=== PATIENT | female | born 1950 | race Caucasian/White ===

== ENCOUNTER 2019-06-23 10:28 | Outpatient (CLI) | payer MEDICARE ==
--- NOTE | 2019-06-23 10:54 | RAD ---
PA AND LATERAL VIEWS OF THE CHEST: HISTORY: Chest wall pain. FINDINGS: Comparison is made with the exam of 04/27/2003. The heart size is borderline. There is a large hiatal hernia. The aorta is tortuous. No lobar cons olidation, pneumothoraces, or pleural effusions are seen. IMPRESSION: 1. No acute process. 2. Large hiatal hernia. POS: OFF
== END 2019-06-23 10:29 | disposition home or self-care (01) ==
LOC: RAD-FRANK 10:28
PROVIDERS: ATTEND Nurse Practitioner Family
DX: R07.89 Other chest pain (principal); K44.9 Diaphragmatic hernia without obstruction or gangrene
CPT/HCPCS: 71046

== ENCOUNTER 2021-01-13 10:19 | Outpatient (CLI) | payer MEDICARE | END 2021-01-13 10:20 | disposition home or self-care (01) | LOC: RAD-FRANK 10:19 | PROVIDERS: ATTEND Nurse Practitioner Family | DX: M79.672 Pain in left foot (principal); S92.415D Nondisplaced fracture of proximal phalanx of left great toe, subsequent encounter for fracture with routine healing ==

== ENCOUNTER 2022-02-20 13:37 | Outpatient (CLI) | payer MEDICARE, OTHER | END 2022-02-20 13:38 | disposition home or self-care (01) | LOC: BICMAMMO 13:37 | PROVIDERS: ATTEND Internal Medicine | DX: Z12.31 Encounter for screening mammogram for malignant neoplasm of breast (principal); Z85.3 Personal history of malignant neoplasm of breast; Z98.890 Other specified postprocedural states | CPT/HCPCS: 77063; 77067 ==

== ENCOUNTER 2022-06-14 14:56 | Outpatient (CLI) | payer MEDICARE, OTHER | END 2022-06-14 14:57 | disposition home or self-care (01) | LOC: RAD-FRANK 14:56 | PROVIDERS: ATTEND Nurse Practitioner Family | DX: R05.9 Cough, unspecified (principal) | CPT/HCPCS: 71046 ==

== ENCOUNTER 2022-09-05 17:38 | Emergency (ER) | payer OTHER, MEDICARE ==
[~2022-09-05 17:38] MED LIST: Iopamidol-370 76% 500 ML MDV (1 ML CHARGE) ONE
[2022-09-05 18:12] LABS: #Monocytes 0.3 thou/uL (0.11-0.59); #Neutrophils 4.8 thou/uL (1.40-6.50); %Basophils 0.5 % (0.0-1.0); %Eosinophils 0.3 % (0.0-10.0); %Lymphocytes 17.6 % (21.0-51.0); %Monocytes 4.9 % (0.0-10.0); %Neutrophils 76.4 % (42.0-75.0); Hemoglobin 13.3 g/dL (12.0-16.0); Mean Corpuscular HGB CONC 34.1 g/dL (32.0-36.0); Mean Corpuscular Hemoglobin 31.4 pg (27.0-31.0); Mean Corpuscular Volume 92.2 fl (78.0-98.0); Mean Platelet Volume 10.1 fL (7.4-10.4); Platelet Count 224 10x3/uL (130-400); RBC Distribution Width 13.2 % (11.5-14.5); Red Blood Cell (RBC) Count 4.23 mill/uL (4.20-5.40); White Blood Cell (WBC) Count 6.3 10x3/uL (4.8-10.8)
[2022-09-05 18:31] LABS: ALT (SGPT) 12 U/L (8-55); AST (SGOT) 15 U/L (5-34); Acetaminophen Less than 10.0 mcg/mL (10.0-30.0); Albumin 3.9 g/dL (3.4-4.8); Alcohol 259 mg/dL (Less than 10); Alkaline Phosphatase 62 U/L (40-110); Anion Gap 13 mmol/L (10-20); BUN (Urea Nitrogen) 5 mg/dL (9.8-20.1); Bilirubin, Total 0.7 mg/dL (0.2-1.2); CK (CPK) 33 U/L (29-168); Calc. Creatinine Clearance 0 mL/min (70-130); Calcium 8.7 mg/dL (7.8-10.44); Carbon Dioxide 22 mmol/L (23-31); Chloride 102 mmol/L (98-107); Estimated GFR 92; Globulin 2.5 g/dL (2.4-3.5); Glucose 135 mg/dL (83-110); Potassium 3.3 mmol/L (3.5-5.1); Protein, Total 6.4 g/dL (5.8-8.1); Salicylate Less than 8.0 mg/dL (15.0-30.0); Sodium 134 mmol/L (136-145)
[2022-09-05 18:54] LABS: Bilirubin Negative (Negative); Blood, Urine Negative (Negative); Clarity Clear (Clear); Glucose, Urine (Dipstick) Normal (Negative); Ketone, Urine Negative (Negative); Leukocyte Negative Leu/uL (Negative); Nitrite Negative (Negative); Protein, Urine (Dipstick) Negative (Neg-Trace); Specific Gravity, Urine 1.034 (1.002-1.036); Urobilinogen Normal mg/dL (Less than 2)
[2022-09-05 19:01] LABS: Amphetamine Not Detected (NotDetected); Barbiturates Screen Not Detected (NotDetected); Benzodiazepine Screen Not Detected (NotDetected); Cocaine Metabolite Screen Not Detected (NotDetected); Methadone Not Detected (NotDetected); Methamphetamine Not Detected (NotDetected); Opiate Screen Not Detected (NotDetected); Oxycodone Screen Not Detected (NotDetected); Phencyclidine (PCP) Not Detected (NotDetected); THC/Cannabinoid Screen Not Detected (NotDetected); Tricyclic Screen Not Detected (NotDetected)
== END 2022-09-05 20:10 | disposition home or self-care (01) ==
LOC: ERS 17:38
DX: S22.080A Wedge compression fracture of T11-T12 vertebra, initial encounter for closed fracture (principal); K44.9 Diaphragmatic hernia without obstruction or gangrene; I10 Essential (primary) hypertension; E78.00 Pure hypercholesterolemia, unspecified; E11.9 Type 2 diabetes mellitus without complications; V89.2XXA Person injured in unspecified motor-vehicle accident, traffic, initial encounter
CPT/HCPCS: 51701; 70450; 71045; 71260; 72125; 74177; 80053; 80306; 80307; 81003; 82550; 84484; 85025; 93005; Q9967

== ENCOUNTER 2023-05-29 13:27 | Outpatient (CLI) | payer MEDICARE | END 2023-05-29 13:28 | disposition home or self-care (01) | LOC: BICMAMMO 13:27 | PROVIDERS: ATTEND Internal Medicine | DX: Z12.31 Encounter for screening mammogram for malignant neoplasm of breast (principal); Z85.3 Personal history of malignant neoplasm of breast; Z98.890 Other specified postprocedural states | CPT/HCPCS: 77063; 77067 ==

== ENCOUNTER 2024-10-16 11:12 | Outpatient (CLI) | payer MEDICARE, OTHER ==
[2024-10-16 12:21] LABS: #Basophils 0.04 10x3/uL (0.0-0.2); #Eosinophils Less than 0.03 10x3/uL (0.0-0.7); %Basophils 0.5 % (0.0-1.0); %Eosinophils 0.1 % (0.0-10.0); %Lymphocytes 12.6 % (21.0-51.0); %Monocytes 4.6 % (0.0-10.0); %Neutrophils 81.9 % (42.0-75.0); Hemoglobin 13.5 g/dL (12.0-16.0); Mean Corpuscular HGB CONC 33.8 g/dL (32.0-36.0); Mean Corpuscular Hemoglobin 28.9 pg (27.0-31.0); Mean Corpuscular Volume 85.7 fL (78.0-98.0); Mean Platelet Volume 9.8 fL (7.4-10.4); Platelet Count 346 10x3/uL (130-400); Red Blood Cell (RBC) Count 4.67 mill/uL (4.20-5.40); White Blood Cell (WBC) Count 8.67 10x3/uL (4.8-10.8)
[2024-10-16 12:32] LABS: Hemoglobin A1c 5.9 % (4.0-6.0)
[2024-10-16 12:50] LABS: ALT (SGPT) 23 U/L (Less than 34); AST (SGOT) 34 U/L (11-34); Albumin 4.3 g/dL (3.1-4.5); Alkaline Phosphatase 103 U/L (40-110); Anion Gap 15 mmol/L (10-20); BUN (Urea Nitrogen) 10 mg/dL (9.8-20.1); Bilirubin, Total 1.4 mg/dL (0.3-1.2); Calc. Creatinine Clearance 0 mL/min (70-130); Calcium 9.4 mg/dL (7.8-10.44); Carbon Dioxide 22 mmol/L (23-31); Chloride 88 mmol/L (98-107); Estimated GFR 69; Globulin 3.5 g/dL (2.4-3.5); Glucose 161 mg/dL (83-110); Potassium 3.5 mmol/L (3.5-5.1); Protein, Total 7.8 g/dL (5.8-8.1); Sodium 121 mmol/L (136-145)
== END 2024-10-16 11:13 | disposition home or self-care (01) ==
LOC: LABBT 11:12
PROVIDERS: ATTEND Surgery
DX: Z01.818 Encounter for other preprocedural examination (principal); Z87.19 Personal history of other diseases of the digestive system; Z86.0101 Personal history of adenomatous and serrated colon polyps; Z93.2 Ileostomy status
CPT/HCPCS: 80053; 83036; 85025; 93005; 93010

== ENCOUNTER 2024-12-05 14:07 | Inpatient (IN) | payer MEDICARE, OTHER ==
[2024-12-05 15:47] LABS: Cocaine Metabolite Screen Negative (Negative); THC/Cannabinoid Screen Negative (Negative); Tricyclic Screen Negative (Negative)
[2024-12-05 16:15] LABS: #Basophils 0.06 10x3/uL (0.0-0.2); #Eosinophils Less than 0.03 10x3/uL (0.0-0.7); #Monocytes 0.41 10x3/uL (0.11-0.59); #Neutrophils 10.96 10x3/uL (1.40-6.50); %Basophils 0.5 % (0.0-1.0); %Eosinophils 0.0 % (0.0-10.0); %Lymphocytes 7.0 % (21.0-51.0); %Monocytes 3.3 % (0.0-10.0); %Neutrophils 88.9 % (42.0-75.0); Hematocrit 37.2 % (36.0-47.0); Hemoglobin 12.4 g/dL (12.0-16.0); Mean Corpuscular Hemoglobin 28.4 pg (27.0-31.0); Mean Corpuscular Volume 85.1 fL (78.0-98.0); Platelet Count 291 10x3/uL (130-400); Red Blood Cell (RBC) Count 4.37 mill/uL (4.20-5.40); White Blood Cell (WBC) Count 12.33 10x3/uL (4.8-10.8)
[2024-12-05 16:32] LABS: INR-International Normal Ratio 1.0; Prothrombin Time 13.7 sec (12.0-14.7)
[2024-12-05 16:33] LABS: PTT 23.9 sec (22.9-36.1)
[2024-12-05 16:34] LABS: Magnesium 1.8 mg/dL (1.6-2.6)
[2024-12-05 16:35] LABS: ALT (SGPT) 10 U/L (Less than 34); AST (SGOT) 17 U/L (11-34); Acetaminophen Less than 10 mcg/mL (Less than 10); Albumin 4.2 g/dL (3.1-4.5); Alkaline Phosphatase 70 U/L (40-110); Anion Gap 15 mmol/L (10-20); BUN (Urea Nitrogen) 9 mg/dL (9.8-20.1); Bilirubin, Total 1.2 mg/dL (0.3-1.2); Calc. Creatinine Clearance 0 mL/min (70-130); Calcium 8.8 mg/dL (7.8-10.44); Carbon Dioxide 23 mmol/L (23-31); Chloride 99 mmol/L (98-107); Globulin 2.9 g/dL (2.4-3.5); Glucose 142 mg/dL (83-110); Potassium 4.2 mmol/L (3.5-5.1); Salicylate Less than 8.0 mg/dL (Less than 8.0); Sodium 133 mmol/L (136-145)
[2024-12-05 17:27] LABS: Actual Bicarbonate (HCO3v) 22.7 mEq/L (22-28); Analyzer IN Cardio ER; Base Excess -0.9 mEq/L (-2.0 to +3.0); Calcium, Ionized (venous) 1.11 mmol/L (1.16-1.32); Chloride (VBG) 98 mmol/L (98-106); Hematocrit-VBG 37 % (36.0-47.0); Hemoglobin (Hb) 12.7 g/dL (11.7-16.1); Potassium (VBG) 3.86 mmol/L (3.70-5.30); Sodium 135 mmol/L (133-146)
[2024-12-05] MEDS ORDERED: Acetaminophen 325 MG TAB PO PRN (18:59)
[2024-12-05] MEDS ORDERED: Ondansetron PF 4 MG/2 ML Vial IVP PRN (18:59)
[2024-12-05] MEDS ORDERED: Dextrose 50% Abboject 50 ML SYRINGE SLOW IVP PRN (18:59)
[2024-12-05] MEDS ORDERED: Glucagon 1 MG/ML KIT IM PRN (18:59)
[2024-12-05] MEDS: Multivitamins, Adult 10 ML, Thiamine HCl 100 MG, Folic Acid 1 MG in Dextrose 5 %-0.45 %... IV ONE (21:57)
[2024-12-05] MEDS ORDERED: Nitroglycerin 0.4 MG TAB (25 Tab Bottle) SL PRN (23:07)
[2024-12-05] MEDS: Heparin 10,000 UNITS/ 10 ML VIAL SLOW IVP SCH (23:48)
[2024-12-06] MEDS: Aspirin 325 MG TAB PO SCH ×2 (03:08→06:21)
[2024-12-06 03:13] LABS: Glucose, Urine (Dipstick) Normal (Negative); Leukocyte Negative Leu/uL (Negative); Protein, Urine (Dipstick) Negative (Neg-Trace); Specific Gravity, Urine 1.005 (1.002-1.036)
[2024-12-06 06:20] LABS: #Basophils 0.07 10x3/uL (0.0-0.2); #Eosinophils 0.10 10x3/uL (0.0-0.7); #Monocytes 0.49 10x3/uL (0.11-0.59); #Neutrophils 6.94 10x3/uL (1.40-6.50); %Basophils 0.8 % (0.0-1.0); %Eosinophils 1.1 % (0.0-10.0); %Lymphocytes 14.5 % (21.0-51.0); %Monocytes 5.5 % (0.0-10.0); %Neutrophils 77.9 % (42.0-75.0); Hematocrit 36.1 % (36.0-47.0); Hemoglobin 11.8 g/dL (12.0-16.0); Mean Corpuscular Hemoglobin 28.4 pg (27.0-31.0); Mean Corpuscular Volume 87.0 fL (78.0-98.0); Platelet Count 247 10x3/uL (130-400); Red Blood Cell (RBC) Count 4.15 mill/uL (4.20-5.40); White Blood Cell (WBC) Count 8.91 10x3/uL (4.8-10.8)
[2024-12-06 06:50] LABS: Anion Gap 12 mmol/L (10-20); BUN (Urea Nitrogen) 7 mg/dL (9.8-20.1); Calc. Creatinine Clearance 77 mL/min (70-130); Calcium 7.9 mg/dL (7.8-10.44); Carbon Dioxide 21 mmol/L (23-31); Cardiac Risk 3.1 (Less than 4.5); Chloride 105 mmol/L (98-107); Cholesterol 192 mg/dl (< 200 Desired); Glucose 128 mg/dL (83-110); HDL Cholesterol 62 mg/dL (>60 Neg Risk); LDL Cholesterol, Calculated 103 mg/dL; Potassium 3.2 mmol/L (3.5-5.1); Sodium 135 mmol/L (136-145); Triglycerides 137 mg/dL (Less than 150)
[2024-12-06] MEDS ORDERED: Enoxaparin 40 MG (0.4 mL) SYRINGE SC SCH (09:00)
[2024-12-06] MEDS: Lisinopril 10 MG TAB PO SCH (10:00)
[2024-12-07 10:05] LABS: #Basophils 0.06 10x3/uL (0.0-0.2); #Eosinophils 0.06 10x3/uL (0.0-0.7); #Monocytes 0.48 10x3/uL (0.11-0.59); #Neutrophils 6.42 10x3/uL (1.40-6.50); %Basophils 0.7 % (0.0-1.0); %Eosinophils 0.7 % (0.0-10.0); %Lymphocytes 14.9 % (21.0-51.0); %Monocytes 5.8 % (0.0-10.0); %Neutrophils 77.5 % (42.0-75.0); Hematocrit 41.2 % (36.0-47.0); Hemoglobin 13.6 g/dL (12.0-16.0); Mean Corpuscular Hemoglobin 28.8 pg (27.0-31.0); Mean Corpuscular Volume 87.3 fL (78.0-98.0); Platelet Count 239 10x3/uL (130-400); Red Blood Cell (RBC) Count 4.72 mill/uL (4.20-5.40); White Blood Cell (WBC) Count 8.28 10x3/uL (4.8-10.8)
[2024-12-07 10:28] LABS: Anion Gap 16 mmol/L (10-20); BUN (Urea Nitrogen) 7 mg/dL (9.8-20.1); Calc. Creatinine Clearance 72 mL/min (70-130); Calcium 8.7 mg/dL (7.8-10.44); Carbon Dioxide 21 mmol/L (23-31); Chloride 106 mmol/L (98-107); Glucose 180 mg/dL (83-110); Potassium 3.4 mmol/L (3.5-5.1); Sodium 140 mmol/L (136-145)
[2024-12-07] MEDS: Aspirin 81 mg Enteric Coated Tablet PO SCH (11:28)
[2024-12-07 11:42] VITALS: BP 153/81; TEMP 97.8
[2024-12-08] MEDS ORDERED: Aspirin 81 mg Enteric Coated Tablet PO SCH (09:00)
== END 2024-12-07 16:30 | disposition home or self-care (01) | DRG 71 ==
LOC: ERS 14:07 → 2SE 17:56 → OBSVTOIN 17:57
PROVIDERS: ADMIT Internal Medicine; ATTEND Internal Medicine
DX: G93.41 Metabolic encephalopathy (principal); Q04.8 Other specified congenital malformations of brain; R29.810 Facial weakness; E11.9 Type 2 diabetes mellitus without complications; E03.9 Hypothyroidism, unspecified; I10 Essential (primary) hypertension; H53.8 Other visual disturbances; L56.8 Other specified acute skin changes due to ultraviolet radiation; Z79.890 Hormone replacement therapy; Z79.899 Other long term (current) drug therapy; Z79.84 Long term (current) use of oral hypoglycemic drugs
CPT/HCPCS: 36415; 36416; 70450; 70496; 70498; 70553; 71260; 76376; 80048; 80053; 80061; 80306; 80307; 81003; 82607; 82805; 83605; 83735; 83880; 84425; 84443; 84484; 84590; 85025; 85610; 85730; 93005; 93306; 96361; 96365; J1644; J3411; J7030; J7042; Q9967

== ENCOUNTER 2025-02-06 18:01 | Inpatient (IN) | payer MEDICARE, OTHER ==
[~2025-02-06 18:01] MED LIST changes: +Iopamidol 370 76% 100 ML VIAL ONE; -Iopamidol-370 76% 500 ML MDV (1 ML CHARGE) ONE
[2025-02-06] MEDS ORDERED: Norepinephrine 8 MG/0.9% NS 250 ML ONE (18:05)
[2025-02-06] MEDS ORDERED: Heparin 5,000 UNITS/ML VIAL ONE (18:30)
[2025-02-06 18:45] LABS: Base Excess (BEa) -12.5 mEq/L (-2.0 to +3.0); CO2 Tension 32.5 mmHg (35.0-45.0); Calcium, Ionized (arterial) 1.08 mmol/L (1.12-1.30); Hematocrit-ABG 41 % (36.0-47.0); Hemoglobin (Hb) 13.8 g/dL (12.0-16.0); O2 Tension (PaO2), arterial 151.1 mmHg (> 70.0); Potassium - ABG Lab 4.47 mmol/L (3.70-5.30); pH, Arterial 7.242 (7.35-7.45)
[2025-02-06] MEDS ORDERED: Lidocaine 1% (PF) 30 ML VIAL ONE (18:46)
[2025-02-06] MEDS ORDERED: PHENYLEPHRINE-NS 100 MCG/ML 10 ML SYRINGE ONE (18:46)
[2025-02-06] MEDS ORDERED: Adenosine 6 mg (2 mL) VIAL ONE (18:46)
[2025-02-06] MEDS ORDERED: Heparin 10,000 UNITS/ 10 ML VIAL ONE (18:46)
[2025-02-06] MEDS ORDERED: Nitroglycerin 50 MG/250 ML BOT 0 ML ONE (18:46)
[2025-02-06 18:57] LABS: #Basophils 0.03 10x3/uL (0.0-0.2); #Eosinophils Less than 0.03 10x3/uL (0.0-0.7); #Monocytes 0.77 10x3/uL (0.11-0.59); #Neutrophils 15.59 10x3/uL (1.40-6.50); %Basophils 0.2 % (0.0-1.0); %Eosinophils 0.0 % (0.0-10.0); %Lymphocytes 4.3 % (21.0-51.0); %Monocytes 4.5 % (0.0-10.0); %Neutrophils 90.4 % (42.0-75.0); Hematocrit 37.1 % (36.0-47.0); Hemoglobin 12.1 g/dL (12.0-16.0); Mean Corpuscular Hemoglobin 29.9 pg (27.0-31.0); Mean Corpuscular Volume 91.6 fL (78.0-98.0); Platelet Count 192 10x3/uL (130-400); Red Blood Cell (RBC) Count 4.05 mill/uL (4.20-5.40); White Blood Cell (WBC) Count 17.23 10x3/uL (4.8-10.8)
[2025-02-06 19:10] LABS: Bacteria/HPF None Seen HPF (None Seen); CAUTI Indications for Culture Urological Procedure; Glucose, Urine (Dipstick) 150 mg/dL (Negative); Leukocyte Negative Leu/uL (Negative); Protein, Urine (Dipstick) 20 mg/dL (Neg-Trace); RBC/HPF 0-3 HPF (0-3); WBC/HPF 0-3 HPF (0-3)
[2025-02-06 19:12] LABS: Cocaine Metabolite Screen Negative (Negative); THC/Cannabinoid Screen Negative (Negative); Tricyclic Screen Negative (Negative)
[2025-02-06 19:14] LABS: INR-International Normal Ratio 1.4; PTT 28.2 sec (22.9-36.1); Prothrombin Time 16.9 sec (12.0-14.7); Specific Gravity, Urine Greater than 1.036 (1.002-1.036)
[2025-02-06 19:15] LABS: Urine Culture Reflex Yes Yes
[2025-02-06 19:24] LABS: Lipase 16 U/L (8-78); Magnesium 1.6 mg/dL (1.6-2.6)
[2025-02-06 19:25] LABS: Acetaminophen Less than 10 mcg/mL (Less than 10); Salicylate Less than 8.0 mg/dL (Less than 8.0)
[2025-02-06 19:26] LABS: ALT (SGPT) 228 U/L (Less than 34); AST (SGOT) 549 U/L (11-34); Albumin 3.2 g/dL (3.1-4.5); Alkaline Phosphatase 132 U/L (40-110); Anion Gap 20 mmol/L (10-20); BUN (Urea Nitrogen) 6 mg/dL (9.8-20.1); Bilirubin, Total 1.3 mg/dL (0.3-1.2); CK (CPK) 145 U/L (29-168); Calc. Creatinine Clearance 0 mL/min (70-130); Calcium 7.0 mg/dL (7.8-10.44); Carbon Dioxide 13 mmol/L (23-31); Chloride 104 mmol/L (98-107); Globulin 2.4 g/dL (2.4-3.5); Glucose 242 mg/dL (83-110); Potassium 4.0 mmol/L (3.5-5.1); Sodium 133 mmol/L (136-145)
[2025-02-06] MEDS ORDERED: Ondansetron PF 4 MG/2 ML Vial IVP PRN (20:34)
[2025-02-06] MEDS ORDERED: NOREPINEPHRINE 8 MG/250 ML-D5W 250 ML ONE (21:05)
[2025-02-06] MEDS ORDERED: Ventilator Sedation Protocol 1 EACH FS SCH (21:15)
[2025-02-06] MEDS ORDERED: Phenylephrine 40 MG/NS 250 ML 250 ML IVPB SCH (21:30)
[2025-02-06] MEDS: Sodium Bicarb 50 MEQ/50 ML Abboject 8.4% SYRINGE IVP SCH (21:40)
[2025-02-06] MEDS: Vasopressin In 0.9 % NaCl 100 ML IV SCH (21:40)
[2025-02-06 21:49] LABS: Actual Bicarbonate (HCO3a) 24.0 mEq/L (22-28); Base Excess (BEa) -0.6 mEq/L (-2.0 to +3.0); CO2 Tension 39.5 mmHg (35.0-45.0); Calcium, Ionized (arterial) 0.93 mmol/L (1.12-1.30); Hematocrit-ABG 36 % (36.0-47.0); Hemoglobin (Hb) 12.3 g/dL (12.0-16.0); O2 Tension (PaO2), arterial 146.7 mmHg (> 70.0); Potassium - ABG Lab 4.45 mmol/L (3.70-5.30); pH, Arterial 7.402 (7.35-7.45)
[2025-02-06 21:50] LABS: ALV-art Gradient 516.925 mmHg (0-20); Puncture Site Arterial Line
[2025-02-06] MEDS ORDERED: DISCONTINUE PREVIOUS NARCOTIC PAIN MEDICATIONS AND BENZODIAZEPINES FS SCH (22:00)
[2025-02-06] MEDS ORDERED: Propofol BOLUS 1,000 MG/100 ML VIAL IV PRN (22:00)
[2025-02-06] MEDS ORDERED: Fentanyl BOLUS 100 ML IVPB PRN (22:00)
[2025-02-06] MEDS: Vasopressin In 0.9 % NaCl 100 ML ONE ×2 (22:04→22:05)
[2025-02-06] MEDS: Sodium Bicarb 50 MEQ/50 ML Abboject 8.4% SYRINGE ONE (22:05)
[2025-02-06] MEDS: Famotidine/PF 20 mg/2ml Vial SLOW IVP SCH (22:13)
[2025-02-06] MEDS: Hydrocortisone Sod Succ/PF 100 mg/2 ml Vial IVP SCH (22:13)
[2025-02-06] MEDS ORDERED: Multivit, Adult Inj 10 ML VIAL IV SCH (22:30)
[2025-02-06] MEDS: Multivitamins, Adult 10 ML in Sodium Chloride 0.9% 500 ML IV SCH (23:15)
[2025-02-06 23:16] LABS: #Basophils 0.03 10x3/uL (0.0-0.2); #Eosinophils Less than 0.03 10x3/uL (0.0-0.7); #Monocytes 0.63 10x3/uL (0.11-0.59); #Neutrophils 18.26 10x3/uL (1.40-6.50); %Basophils 0.2 % (0.0-1.0); %Eosinophils 0.0 % (0.0-10.0); %Lymphocytes 2.6 % (21.0-51.0); %Monocytes 3.2 % (0.0-10.0); %Neutrophils 93.5 % (42.0-75.0); Hematocrit 35.8 % (36.0-47.0); Hemoglobin 11.9 g/dL (12.0-16.0); Mean Corpuscular Hemoglobin 29.8 pg (27.0-31.0); Mean Corpuscular Volume 89.7 fL (78.0-98.0); Platelet Count 186 10x3/uL (130-400); Red Blood Cell (RBC) Count 3.99 mill/uL (4.20-5.40); White Blood Cell (WBC) Count 19.52 10x3/uL (4.8-10.8)
[2025-02-06 23:38] LABS: ALT (SGPT) 243 U/L (Less than 34); AST (SGOT) 489 U/L (11-34); Albumin 3.1 g/dL (3.1-4.5); Alkaline Phosphatase 117 U/L (40-110); Anion Gap 18 mmol/L (10-20); BUN (Urea Nitrogen) 8 mg/dL (9.8-20.1); Bilirubin, Total 1.3 mg/dL (0.3-1.2); Calc. Creatinine Clearance 0 mL/min (70-130); Calcium 7.2 mg/dL (7.8-10.44); Carbon Dioxide 20 mmol/L (23-31); Chloride 98 mmol/L (98-107); Globulin 2.3 g/dL (2.4-3.5); Glucose 273 mg/dL (83-110); Potassium 4.1 mmol/L (3.5-5.1); Sodium 132 mmol/L (136-145)
[2025-02-07 00:01] LABS: Hep A IgM AB NONREACTIVE (NonReactive); Hep A IgM S/CO 0.19 S/CO (0-0.79); Hep B Core IgM Index 0.08 S/CO (0-0.79); Hep B Surf Ag NONREACTIVE S/CO (NonReactive); Hep C IgG Ab NONREACTIVE S/CO (NonReactive); Hep C Index 0.07 S/CO (0-0.79)
[2025-02-07] MEDS: Norepinephrine 8 MG/0.9% NS 250 ML IVPB SCH (02:07)
[2025-02-07] MEDS: Hydrocortisone Sod Succ/PF 100 mg/2 ml Vial IVP SCH (03:57)
[2025-02-07 03:59] LABS: #Basophils Less than 0.03 10x3/uL (0.0-0.2); #Eosinophils Less than 0.03 10x3/uL (0.0-0.7); #Monocytes 0.39 10x3/uL (0.11-0.59); #Neutrophils 10.89 10x3/uL (1.40-6.50); %Basophils 0.1 % (0.0-1.0); %Eosinophils 0.0 % (0.0-10.0); %Lymphocytes 2.5 % (21.0-51.0); %Monocytes 3.4 % (0.0-10.0); %Neutrophils 93.5 % (42.0-75.0); Hematocrit 32.7 % (36.0-47.0); Hemoglobin 11.2 g/dL (12.0-16.0); Mean Corpuscular Hemoglobin 29.7 pg (27.0-31.0); Mean Corpuscular Volume 86.7 fL (78.0-98.0); Platelet Count 128 10x3/uL (130-400); Red Blood Cell (RBC) Count 3.77 mill/uL (4.20-5.40); White Blood Cell (WBC) Count 11.64 10x3/uL (4.8-10.8)
[2025-02-07 06:45] LABS: Vancomycin, Random 12.6 ug/mL (See Comment)
[2025-02-07 06:51] LABS: ALT (SGPT) 673 U/L (Less than 34); AST (SGOT) 1281 U/L (11-34); Albumin 2.9 g/dL (3.1-4.5); Alkaline Phosphatase 88 U/L (40-110); Anion Gap 16 mmol/L (10-20); BUN (Urea Nitrogen) 9 mg/dL (9.8-20.1); Bilirubin, Total 1.1 mg/dL (0.3-1.2); Calc. Creatinine Clearance 61 mL/min (70-130); Calcium 6.8 mg/dL (7.8-10.44); Carbon Dioxide 16 mmol/L (23-31); Chloride 106 mmol/L (98-107); Globulin 2.1 g/dL (2.4-3.5); Glucose 229 mg/dL (83-110); Potassium 3.6 mmol/L (3.5-5.1); Sodium 134 mmol/L (136-145)
[2025-02-07] MEDS: levETIRAcetam 500 MG (5 mL) VIAL SLOW IVP SCH (08:24)
[2025-02-07] MEDS: Mupirocin 1 GM TUBE NASAL DECOLONIZATION NASAL SCH (08:24)
[2025-02-07] MEDS: Folic Acid 5 MG/ML MDV SC SCH (10:39)
[2025-02-07] MEDS ORDERED: Dextrose 50% Abboject 50 ML SYRINGE SLOW IVP PRN (11:38)
[2025-02-07] MEDS ORDERED: Glucagon 1 MG/ML KIT IM PRN (11:38)
[2025-02-07] MEDS: Vancomycin HCl 1.25 GM in Sodium Chloride 0.9% 250 ML 250 ML IVPB SCH (15:26)
[2025-02-07] MEDS ORDERED: Vancomycin 1 GM in Premix 1 BAG IVPB SCH (21:08)
[2025-02-08 04:42] LABS: #Basophils Less than 0.03 10x3/uL (0.0-0.2); #Eosinophils Less than 0.03 10x3/uL (0.0-0.7); #Monocytes 0.25 10x3/uL (0.11-0.59); #Neutrophils 8.18 10x3/uL (1.40-6.50); %Basophils 0.1 % (0.0-1.0); %Eosinophils 0.0 % (0.0-10.0); %Lymphocytes 4.5 % (21.0-51.0); %Monocytes 2.8 % (0.0-10.0); %Neutrophils 92.1 % (42.0-75.0); Hematocrit 29.0 % (36.0-47.0); Hemoglobin 10.2 g/dL (12.0-16.0); Mean Corpuscular Hemoglobin 29.9 pg (27.0-31.0); Mean Corpuscular Volume 85.0 fL (78.0-98.0); Platelet Count 128 10x3/uL (130-400); Red Blood Cell (RBC) Count 3.41 mill/uL (4.20-5.40); White Blood Cell (WBC) Count 8.88 10x3/uL (4.8-10.8)
[2025-02-08 04:53] LABS: Vancomycin, Random 3.8 ug/mL (See Comment)
[2025-02-08 04:55] LABS: ALT (SGPT) 760 U/L (Less than 34); AST (SGOT) 952 U/L (11-34); Albumin 2.7 g/dL (3.1-4.5); Alkaline Phosphatase 68 U/L (40-110); Anion Gap 13 mmol/L (10-20); BUN (Urea Nitrogen) 8 mg/dL (9.8-20.1); Bilirubin, Total 0.8 mg/dL (0.3-1.2); Calc. Creatinine Clearance 71 mL/min (70-130); Calcium 7.5 mg/dL (7.8-10.44); Carbon Dioxide 20 mmol/L (23-31); Chloride 108 mmol/L (98-107); Globulin 2.4 g/dL (2.4-3.5); Glucose 160 mg/dL (83-110); Magnesium 1.8 mg/dL (1.6-2.6); Potassium 3.6 mmol/L (3.5-5.1); Sodium 137 mmol/L (136-145)
[2025-02-08] MEDS: Vancomycin HCl 1.25 GM in Sodium Chloride 0.9% 250 ML 250 ML IVPB SCH (09:27)
[2025-02-08] MEDS: Magnesium 2 GM/50 ML(in water) 2 GM in Premix 1 BAG IVPB SCH (10:00)
[2025-02-08] MEDS: Potassium Phosphate 22 MMOL in Sodium Chloride 0.9% 250 ML 250 ML IVPB SCH (10:04)
[2025-02-08] MEDS: Vancomycin 1 GM in Premix 1 BAG IVPB SCH (20:26)
[2025-02-09 04:57] LABS: Vancomycin, Random 16.6 ug/mL (See Comment)
[2025-02-09 05:00] LABS: ALT (SGPT) 717 U/L (Less than 34); AST (SGOT) 488 U/L (11-34); Albumin 2.7 g/dL (3.1-4.5); Alkaline Phosphatase 70 U/L (40-110); Anion Gap 14 mmol/L (10-20); BUN (Urea Nitrogen) 9 mg/dL (9.8-20.1); Bilirubin, Total 0.7 mg/dL (0.3-1.2); Calc. Creatinine Clearance 88 mL/min (70-130); Calcium 7.4 mg/dL (7.8-10.44); Carbon Dioxide 21 mmol/L (23-31); Chloride 109 mmol/L (98-107); Globulin 2.7 g/dL (2.4-3.5); Glucose 155 mg/dL (83-110); Potassium 3.5 mmol/L (3.5-5.1); Sodium 140 mmol/L (136-145)
[2025-02-09 05:39] LABS: Ovalocytes SLIGHT = 2-5 cells HPF (0-1); Platelet Adequacy Comment Platelets Decreased; Polychromasia SLIGHT = 2-3 cells HPF (0-2); Smudge Cells 4.0 %
[2025-02-09 05:47] LABS: Hematocrit 30.8 % (36.0-47.0); Hemoglobin 10.4 g/dL (12.0-16.0); Mean Corpuscular Volume 87.5 fL (78.0-98.0); Red Blood Cell (RBC) Count 3.52 mill/uL (4.20-5.40); White Blood Cell (WBC) Count 8.39 10x3/uL (4.8-10.8)
[2025-02-09 05:48] LABS: Mean Corpuscular Hemoglobin 29.5 pg (27.0-31.0); Platelet Count 96 10x3/uL (130-400)
[2025-02-09 08:12] LABS: Actual Bicarbonate (HCO3a) 13.7 mEq/L (22-28)
[2025-02-09] MEDS: FOLIC ACID SC SCH (08:49)
[2025-02-09] MEDS: PREFILLED SC SCH (08:49)
[2025-02-09] MEDS: Potassium Chloride 20 MEQ in Premix 1 BAG IVPB SCH (09:44)
[2025-02-09] MEDS: cefTRIAXone\\ROCEPHIN 2 GM in Sodium Chloride 0.9% 100 ML IVPB SCH (10:55)
[2025-02-09] MEDS: Albumin 25% 25 GM (100 mL) BOT IVPB SCH (11:16)
[2025-02-09] MEDS ORDERED: Sodium Bicarbonate 2.5 MEQ/5 ML SDV ONE (12:33)
[2025-02-09] MEDS: FLU (Fluad Triv) 25-26 (65UP)PF 45 MCG/0.5 ML Syringe IM ONE (15:22)
[2025-02-09 19:03] LABS: CSF, Glucose 107.0 mg/dl (40-70); CSF, Protein 62.5 mg/dL (15-40)
[2025-02-09] MEDS: Digoxin 0.5 MG/2 ML AMP SLOW IVP SCH (19:09)
[2025-02-09 19:14] LABS: Actual Bicarbonate (HCO3a) 15.5 mEq/L (22-28); Base Excess (BEa) -9.4 mEq/L (-2.0 to +3.0); CO2 Tension 30.6 mmHg (35.0-45.0); Calcium, Ionized (arterial) 1.01 mmol/L (1.12-1.30); Hematocrit-ABG 32 % (36.0-47.0); Hemoglobin (Hb) 11.0 g/dL (12.0-16.0); O2 Tension (PaO2), arterial 60.5 mmHg (> 70.0); Potassium - ABG Lab 4.38 mmol/L (3.70-5.30); pH, Arterial 7.323 (7.35-7.45)
[2025-02-09] MEDS: Digoxin 0.5 MG/2 ML AMP ONE (19:15)
[2025-02-09 19:16] LABS: ALV-art Gradient 157.930 mmHg (0-20); Puncture Site Right Brachial art
[2025-02-09 19:53] LABS: Anion Gap 19 mmol/L (10-20); BUN (Urea Nitrogen) 10 mg/dL (9.8-20.1); Calc. Creatinine Clearance 80 mL/min (70-130); Calcium 7.4 mg/dL (7.8-10.44); Carbon Dioxide 19 mmol/L (23-31); Chloride 109 mmol/L (98-107); Glucose 183 mg/dL (83-110); Magnesium 2.2 mg/dL (1.6-2.6); Potassium 4.2 mmol/L (3.5-5.1); Sodium 143 mmol/L (136-145)
[2025-02-09 20:42] LABS: CSF Source CSF
[2025-02-10 05:29] LABS: #Basophils Less than 0.03 10x3/uL (0.0-0.2); #Eosinophils Less than 0.03 10x3/uL (0.0-0.7); #Monocytes 0.84 10x3/uL (0.11-0.59); #Neutrophils 10.11 10x3/uL (1.40-6.50); %Basophils 0.1 % (0.0-1.0); %Eosinophils 0.0 % (0.0-10.0); %Lymphocytes 3.6 % (21.0-51.0); %Monocytes 7.3 % (0.0-10.0); %Neutrophils 87.9 % (42.0-75.0); Hematocrit 32.7 % (36.0-47.0); Hemoglobin 10.5 g/dL (12.0-16.0); Mean Corpuscular Hemoglobin 29.2 pg (27.0-31.0); Mean Corpuscular Volume 91.1 fL (78.0-98.0); Platelet Count 114 10x3/uL (130-400); Red Blood Cell (RBC) Count 3.59 mill/uL (4.20-5.40); White Blood Cell (WBC) Count 11.51 10x3/uL (4.8-10.8)
[2025-02-10 05:40] LABS: Anion Gap 16 mmol/L (10-20); BUN (Urea Nitrogen) 16 mg/dL (9.8-20.1); Calc. Creatinine Clearance 77 mL/min (70-130); Calcium 7.6 mg/dL (7.8-10.44); Carbon Dioxide 19 mmol/L (23-31); Chloride 110 mmol/L (98-107); Glucose 170 mg/dL (83-110); Potassium 4.2 mmol/L (3.5-5.1); Sodium 141 mmol/L (136-145)
[2025-02-10] MEDS: Water For Inject, Bacteriostat 30 ML ONE (09:21)
[2025-02-10] MEDS: Vancomycin 1 GM/200 ML (FROZEN) BAG ONE (09:23)
[2025-02-10] MEDS: Enoxaparin 40 MG (0.4 mL) SYRINGE SC SCH (16:09)
[2025-02-10] MEDS: Sacubitril 24MG/Valsartan 26 MG TAB PO SCH (20:36)
[2025-02-11 07:50] LABS: #Basophils 0.03 10x3/uL (0.0-0.2); #Eosinophils Less than 0.03 10x3/uL (0.0-0.7); #Monocytes 0.78 10x3/uL (0.11-0.59); #Neutrophils 9.12 10x3/uL (1.40-6.50); %Basophils 0.3 % (0.0-1.0); %Eosinophils 0.0 % (0.0-10.0); %Lymphocytes 6.5 % (21.0-51.0); %Monocytes 7.2 % (0.0-10.0); %Neutrophils 84.0 % (42.0-75.0); Hematocrit 33.2 % (36.0-47.0); Hemoglobin 10.9 g/dL (12.0-16.0); Mean Corpuscular Hemoglobin 29.9 pg (27.0-31.0); Mean Corpuscular Volume 91.2 fL (78.0-98.0); Platelet Count 143 10x3/uL (130-400); Red Blood Cell (RBC) Count 3.64 mill/uL (4.20-5.40); White Blood Cell (WBC) Count 10.85 10x3/uL (4.8-10.8)
[2025-02-11 08:10] LABS: Calc. Creatinine Clearance 85.0 mL/min (70-130); Vancomycin, Random 19.9 ug/mL (See Comment)
[2025-02-11 08:32] LABS: Free T4 (Free Thyroxine) 0.92 ng/dL (0.70-1.48); Thyroid Stimulating Hormone 1.5866 uIU/mL (0.35-4.94)
[2025-02-11] MEDS ORDERED: Metoprolol Succinate XL 25 MG ER.TAB PO SCH (09:00)
[2025-02-11] MEDS: Metoprolol Succinate XL 25 MG ER.TAB PO SCH (09:02)
[2025-02-11] MEDS: Furosemide 20 MG (2 mL) VIAL SLOW IVP SCH (09:04)
[2025-02-11] MEDS: Spironolactone 25 MG TAB PO SCH (09:04)
[2025-02-11] MEDS: Sertraline 100 MG TAB PO SCH (09:04)
[2025-02-11] MEDS: Enoxaparin 40 MG (0.4 mL) SYRINGE SC SCH (09:05)
[2025-02-11 13:51] VITALS: BMI 24.8
[2025-02-11] MEDS: Dapagliflozin Propanediol 10 MG TAB PO SCH (19:49)
[2025-02-11] MEDS: Cefdinir 300 MG CAP PO SCH ×2 (19:50→21:03)
[2025-02-11] MEDS: Famotidine 20 MG TAB PO SCH (21:03)
[2025-02-12 00:10] LABS: HSV 1 - DNA, CSF Negative (Negative); HSV 2 - DNA, CSF Negative (Negative)
[2025-02-12 05:20] LABS: #Basophils 0.05 10x3/uL (0.0-0.2); #Eosinophils Less than 0.03 10x3/uL (0.0-0.7); #Monocytes 1.13 10x3/uL (0.11-0.59); #Neutrophils 12.03 10x3/uL (1.40-6.50); %Basophils 0.3 % (0.0-1.0); %Eosinophils 0.0 % (0.0-10.0); %Lymphocytes 6.3 % (21.0-51.0); %Monocytes 7.8 % (0.0-10.0); %Neutrophils 82.9 % (42.0-75.0); Hematocrit 33.9 % (36.0-47.0); Hemoglobin 11.1 g/dL (12.0-16.0); Mean Corpuscular Hemoglobin 29.4 pg (27.0-31.0); Mean Corpuscular Volume 89.7 fL (78.0-98.0); Platelet Count 173 10x3/uL (130-400); Red Blood Cell (RBC) Count 3.78 mill/uL (4.20-5.40); White Blood Cell (WBC) Count 14.51 10x3/uL (4.8-10.8)
[2025-02-12 05:22] VITALS: BMI 25.5
[2025-02-12 05:37] LABS: Anion Gap 17 mmol/L (10-20); BUN (Urea Nitrogen) 19 mg/dL (9.8-20.1); Calc. Creatinine Clearance 81 mL/min (70-130); Calcium 8.6 mg/dL (7.8-10.44); Carbon Dioxide 21 mmol/L (23-31); Chloride 108 mmol/L (98-107); Glucose 159 mg/dL (83-110); Potassium 3.5 mmol/L (3.5-5.1); Sodium 142 mmol/L (136-145)
[2025-02-12] MEDS: Furosemide 20 MG (2 mL) VIAL SLOW IVP SCH (08:10)
[2025-02-12] MEDS: Digoxin 0.125 MG TAB PO SCH (08:11)
[2025-02-12] MEDS: Metoprolol Succinate XL 25 MG ER.TAB PO SCH (08:11)
[2025-02-12] MEDS: Folic Acid 1 MG TAB PO SCH (08:11)
[2025-02-12] MEDS: levETIRAcetam 500 MG TAB PO SCH ×2 (09:59→20:57)
[2025-02-13 05:18] LABS: Anion Gap 18 mmol/L (10-20); BUN (Urea Nitrogen) 25 mg/dL (9.8-20.1); Calc. Creatinine Clearance 75 mL/min (70-130); Calcium 8.8 mg/dL (7.8-10.44); Carbon Dioxide 19 mmol/L (23-31); Chloride 108 mmol/L (98-107); Glucose 147 mg/dL (83-110); Potassium 3.6 mmol/L (3.5-5.1); Sodium 141 mmol/L (136-145)
[2025-02-13 05:19] LABS: Hematocrit 33.8 % (36.0-47.0); Hemoglobin 11.3 g/dL (12.0-16.0); Mean Corpuscular Hemoglobin 29.9 pg (27.0-31.0); Mean Corpuscular Volume 89.4 fL (78.0-98.0); Platelet Count 193 10x3/uL (130-400); Red Blood Cell (RBC) Count 3.78 mill/uL (4.20-5.40); White Blood Cell (WBC) Count 15.72 10x3/uL (4.8-10.8)
[2025-02-13 06:33] LABS: Burr Cells SLIGHT = 2-5 cells HPF (0-1); Nucleated RBC (Manual Ct) 1 % (0); Plasma Cells 1 % (0-0); Platelet Adequacy Comment Platelets Normal; Polychromasia SLIGHT = 2-3 cells HPF (0-2); Smudge Cells 5.9 %
[2025-02-14 05:22] LABS: #Basophils 0.04 10x3/uL (0.0-0.2); #Eosinophils Less than 0.03 10x3/uL (0.0-0.7); #Monocytes 1.04 10x3/uL (0.11-0.59); #Neutrophils 9.93 10x3/uL (1.40-6.50); %Basophils 0.3 % (0.0-1.0); %Eosinophils 0.1 % (0.0-10.0); %Lymphocytes 7.7 % (21.0-51.0); %Monocytes 8.5 % (0.0-10.0); %Neutrophils 81.0 % (42.0-75.0); Hematocrit 34.2 % (36.0-47.0); Hemoglobin 11.1 g/dL (12.0-16.0); Mean Corpuscular Hemoglobin 29.2 pg (27.0-31.0); Mean Corpuscular Volume 90.0 fL (78.0-98.0); Platelet Count 222 10x3/uL (130-400); Red Blood Cell (RBC) Count 3.80 mill/uL (4.20-5.40); White Blood Cell (WBC) Count 12.26 10x3/uL (4.8-10.8)
[2025-02-14 05:40] LABS: Anion Gap 21 mmol/L (10-20); BUN (Urea Nitrogen) 27 mg/dL (9.8-20.1); Calc. Creatinine Clearance 74 mL/min (70-130); Calcium 8.6 mg/dL (7.8-10.44); Carbon Dioxide 19 mmol/L (23-31); Chloride 104 mmol/L (98-107); Glucose 128 mg/dL (83-110); Potassium 3.8 mmol/L (3.5-5.1); Sodium 140 mmol/L (136-145)
[2025-02-15 05:27] LABS: #Basophils Less than 0.03 10x3/uL (0.0-0.2); #Eosinophils 0.09 10x3/uL (0.0-0.7); #Monocytes 0.73 10x3/uL (0.11-0.59); #Neutrophils 7.60 10x3/uL (1.40-6.50); %Basophils 0.1 % (0.0-1.0); %Eosinophils 0.9 % (0.0-10.0); %Lymphocytes 10.1 % (21.0-51.0); %Monocytes 7.7 % (0.0-10.0); %Neutrophils 80.0 % (42.0-75.0); Hematocrit 32.7 % (36.0-47.0); Hemoglobin 10.7 g/dL (12.0-16.0); Mean Corpuscular Hemoglobin 29.2 pg (27.0-31.0); Mean Corpuscular Volume 89.1 fL (78.0-98.0); Platelet Count 215 10x3/uL (130-400); Red Blood Cell (RBC) Count 3.67 mill/uL (4.20-5.40); White Blood Cell (WBC) Count 9.50 10x3/uL (4.8-10.8)
[2025-02-15 05:42] LABS: Anion Gap 15 mmol/L (10-20); BUN (Urea Nitrogen) 22 mg/dL (9.8-20.1); Calc. Creatinine Clearance 87 mL/min (70-130); Calcium 8.3 mg/dL (7.8-10.44); Carbon Dioxide 24 mmol/L (23-31); Chloride 105 mmol/L (98-107); Glucose 121 mg/dL (83-110); Potassium 2.9 mmol/L (3.5-5.1); Sodium 141 mmol/L (136-145)
[2025-02-15] MEDS: Potassium Chloride 10 MEQ in Premix 1 BAG IVPB SCH (11:29)
[2025-02-15 14:26] LABS: Potassium 3.6 mmol/L (3.5-5.1)
[2025-02-15] MEDS: Furosemide 20 MG TAB PO SCH (14:50)
[2025-02-16 05:59] LABS: Anion Gap 17 mmol/L (10-20); BUN (Urea Nitrogen) 17 mg/dL (9.8-20.1); Calc. Creatinine Clearance 94 mL/min (70-130); Calcium 8.5 mg/dL (7.8-10.44); Carbon Dioxide 23 mmol/L (23-31); Chloride 105 mmol/L (98-107); Glucose 102 mg/dL (83-110); Magnesium 1.7 mg/dL (1.6-2.6); Potassium 3.9 mmol/L (3.5-5.1); Sodium 141 mmol/L (136-145)
[2025-02-16 09:46] LABS: #Basophils Less than 0.03 10x3/uL (0.0-0.2); #Eosinophils 0.04 10x3/uL (0.0-0.7); #Monocytes 0.50 10x3/uL (0.11-0.59); #Neutrophils 8.86 10x3/uL (1.40-6.50); %Basophils 0.2 % (0.0-1.0); %Eosinophils 0.4 % (0.0-10.0); %Lymphocytes 8.4 % (21.0-51.0); %Monocytes 4.8 % (0.0-10.0); %Neutrophils 85.1 % (42.0-75.0); Hematocrit 38.4 % (36.0-47.0); Hemoglobin 12.3 g/dL (12.0-16.0); Mean Corpuscular Hemoglobin 28.8 pg (27.0-31.0); Mean Corpuscular Volume 89.9 fL (78.0-98.0); Platelet Count 252 10x3/uL (130-400); Red Blood Cell (RBC) Count 4.27 mill/uL (4.20-5.40); White Blood Cell (WBC) Count 10.40 10x3/uL (4.8-10.8)
[2025-02-16] MEDS: Magnesium 2 GM/50 ML(in water) 2 GM in Premix 1 BAG IVPB SCH (10:03)
[2025-02-16] MEDS ORDERED: PHOS-NAK 1 PKT PACK PO PRN (12:30)
[2025-02-16] MEDS ORDERED: Magnesium 2 GM/50 ML(in water) 2 GM in Premix 1 BAG IVPB PRN (12:30)
[2025-02-16] MEDS ORDERED: Potassium Chloride 20 MEQ in Premix 1 BAG IVPB PRN (12:30)
[2025-02-16 17:14] VITALS: BP 159/91; TEMP 97.6
[2025-02-18 19:15] LABS: Aspergillus AB-CSF <1:1 (.); Blastomyces AB-CSF <1:1 (.); Histoplasma Mycelial AB-CSF <1:1 (.); Histoplasma Yeast AB-CSF <1:1 (.)
== END 2025-02-16 17:06 | DRG 871 ==
LOC: ERS 18:01 → SDC/OP 19:09 → CCU 20:34 → 2NO 02-12 06:27
PROVIDERS: ADMIT Internal Medicine; ATTEND Internal Medicine
PROC: 3E03329 Introduction of Other Anti-infective into Peripheral Vein, Percutaneous Approach (ICD-10-PCS; principal; 2025-02-06)
PROC: XX20X89 Monitoring of Brain Electrical Activity, Computer-aided Detection and Notification, New Technology Group 9 (ICD-10-PCS; 2025-02-06)
PROC: 3E033XZ Introduction of Vasopressor into Peripheral Vein, Percutaneous Approach (ICD-10-PCS; 2025-02-06)
PROC: 4A133R1 Monitoring of Arterial Saturation, Peripheral, Percutaneous Approach (ICD-10-PCS; 2025-02-06)
PROC: 5A1945Z Respiratory Ventilation, 24-96 Consecutive Hours (ICD-10-PCS; 2025-02-06)
PROC: 4A023N8 Measurement of Cardiac Sampling and Pressure, Bilateral, Percutaneous Approach (ICD-10-PCS; 2025-02-06)
PROC: B2161ZZ Fluoroscopy of Right and Left Heart using Low Osmolar Contrast (ICD-10-PCS; 2025-02-06)
PROC: B2111ZZ Fluoroscopy of Multiple Coronary Arteries using Low Osmolar Contrast (ICD-10-PCS; 2025-02-06)
PROC: XX20X89 Monitoring of Brain Electrical Activity, Computer-aided Detection and Notification, New Technology Group 9 (ICD-10-PCS; 2025-02-07)
PROC: 30233J1 Transfusion of Nonautologous Serum Albumin into Peripheral Vein, Percutaneous Approach (ICD-10-PCS; 2025-02-09)
PROC: 00JU3ZZ Inspection of Spinal Canal, Percutaneous Approach (ICD-10-PCS; 2025-02-09)
DX: A41.9 Sepsis, unspecified organism (principal); G93.41 Metabolic encephalopathy; J96.01 Acute respiratory failure with hypoxia; R65.21 Severe sepsis with septic shock; K72.00 Acute and subacute hepatic failure without coma; I21.4 Non-ST elevation (NSTEMI) myocardial infarction; I50.22 Chronic systolic (congestive) heart failure; E87.20 Acidosis, unspecified; I51.81 Takotsubo syndrome; R56.9 Unspecified convulsions; Z86.73 Personal history of transient ischemic attack (TIA), and cerebral infarction without residual deficits; Z79.899 Other long term (current) drug therapy; Z90.49 Acquired absence of other specified parts of digestive tract; E11.9 Type 2 diabetes mellitus without complications; Z93.2 Ileostomy status; E03.9 Hypothyroidism, unspecified; Z85.3 Personal history of malignant neoplasm of breast; R74.01 Elevation of levels of liver transaminase levels; F10.10 Alcohol abuse, uncomplicated; E80.6 Other disorders of bilirubin metabolism; Z79.82 Long term (current) use of aspirin; Z79.890 Hormone replacement therapy; Z79.84 Long term (current) use of oral hypoglycemic drugs; Z23 Encounter for immunization
CPT/HCPCS: 36415; 36416; 36600; 51702; 62270; 70450; 70496; 70498; 71045; 71260; 74177; 76705; 80048; 80053; 80074; 80202; 80306; 80307; 81001; 82550; 82565; 82805; 82945; 83605; 83690; 83735; 83880; 84100; 84145; 84146; 84157; 84439; 84443; 84481; 84484; 85025; 85060; 85610; 85730; 86141; 86612; 86635; 86698; 86850; 86900; 86901; 87040; 87070; 87086; 87205; 87428; 87529; 87798; 89051; 93005; 93010; 93306; 93460; 94002; 94003; 94760; 95705; 96365; 96375; 97139; C1751; C1769; C1887; C1894; C1984; J0153; J0282; J0290; J0461; J0692; J0696; J1160; J1250; J1308; J1644; J1650; J1720; J1815; J1940; J1953; J2003; J2060; J2250; J2270; J2543; J2704; J3010; J3373; J3411; J3475; J3480; J7030; J7050; J7070; J7120; P9047; Q9967

== ENCOUNTER 2025-04-05 16:02 | Inpatient (IN) | payer MEDICARE, BC, OTHER ==
[~2025-04-05 16:02] MED LIST changes: -Iopamidol 370 76% 100 ML VIAL ONE; +Iopamidol-370 76% 500 ML MDV (1 ML CHARGE) ONE
[2025-04-05 16:25] LABS: Bacteria/HPF None Seen HPF (None Seen); CAUTI Indications for Culture Alt mental st,lethar; Glucose, Urine (Dipstick) >=1000 mg/dL (Negative); Leukocyte Negative Leu/uL (Negative); Protein, Urine (Dipstick) 10 mg/dL (Neg-Trace); RBC/HPF 0-3 HPF (0-3); Specific Gravity, Urine 1.007 (1.002-1.036); Urine Culture Reflex No No; WBC/HPF 0-3 HPF (0-3)
[2025-04-05 16:32] LABS: Actual Bicarbonate (HCO3a) 16.6 mEq/L (22-28); Analyzer IN Cardio ER; Base Excess (BEa) -9.5 mEq/L (-2.0 to +3.0); CO2 Tension 36.8 mmHg (35.0-45.0); Calcium, Ionized (arterial) 1.17 mmol/L (1.12-1.30); Hematocrit-ABG 39 % (36.0-47.0); Hemoglobin (Hb) 13.4 g/dL (12.0-16.0); O2 Tension (PaO2), arterial 108.8 mmHg (> 70.0); Potassium - ABG Lab 3.50 mmol/L (3.70-5.30); pH, Arterial 7.272 (7.35-7.45)
[2025-04-05 16:32] LABS: Cocaine Metabolite Screen Negative (Negative); THC/Cannabinoid Screen Negative (Negative); Tricyclic Screen Negative (Negative)
[2025-04-05] MEDS ORDERED: Metoprolol Tartrate 5 MG (5 mL) VIAL ONE (16:36)
[2025-04-05 16:53] LABS: #Basophils 0.08 10x3/uL (0.0-0.2); #Eosinophils Less than 0.03 10x3/uL (0.0-0.7); #Monocytes 0.75 10x3/uL (0.11-0.59); #Neutrophils 18.14 10x3/uL (1.40-6.50); %Basophils 0.4 % (0.0-1.0); %Eosinophils 0.0 % (0.0-10.0); %Lymphocytes 2.6 % (21.0-51.0); %Monocytes 3.8 % (0.0-10.0); %Neutrophils 92.1 % (42.0-75.0); Hematocrit 39.6 % (36.0-47.0); Hemoglobin 13.0 g/dL (12.0-16.0); Mean Corpuscular Hemoglobin 29.0 pg (27.0-31.0); Mean Corpuscular Volume 88.4 fL (78.0-98.0); Platelet Count 293 10x3/uL (130-400); Red Blood Cell (RBC) Count 4.48 mill/uL (4.20-5.40); White Blood Cell (WBC) Count 19.70 10x3/uL (4.8-10.8)
[2025-04-05 17:05] LABS: Acetaminophen Less than 10 mcg/mL (Less than 10); Salicylate Less than 8.0 mg/dL (Less than 8.0)
[2025-04-05 17:06] LABS: ALT (SGPT) 15 U/L (Less than 34); AST (SGOT) 24 U/L (11-34); Albumin 4.4 g/dL (3.1-4.5); Alkaline Phosphatase 67 U/L (40-110); Anion Gap 24 mmol/L (10-20); BUN (Urea Nitrogen) 8 mg/dL (9.8-20.1); Bilirubin, Total 1.2 mg/dL (0.3-1.2); Calc. Creatinine Clearance 0 mL/min (70-130); Calcium 9.2 mg/dL (7.8-10.44); Carbon Dioxide 15 mmol/L (23-31); Chloride 100 mmol/L (98-107); Globulin 3.1 g/dL (2.4-3.5); Glucose 181 mg/dL (83-110); Potassium 3.7 mmol/L (3.5-5.1); Sodium 135 mmol/L (136-145)
[2025-04-05] MEDS ORDERED: Midazolam In 0.9 % NaCl/PF 100 ML IV SCH (17:15)
[2025-04-05 17:32] LABS: INR-International Normal Ratio 1.1; Prothrombin Time 14.4 sec (12.0-14.7)
[2025-04-05 17:36] LABS: PTT 22.6 sec (22.9-36.1)
[2025-04-05] MEDS ORDERED: Cefepime 2 GM VIAL ONE (18:37)
[2025-04-05] MEDS ORDERED: Ondansetron PF 4 MG/2 ML Vial IVP PRN (19:06)
[2025-04-05] MEDS ORDERED: Bisacodyl 10 MG SUPP PR PRN (19:06)
[2025-04-05] MEDS ORDERED: Acetaminophen 325 MG TAB PO PRN (19:06)
[2025-04-05] MEDS ORDERED: Senokot S 8.6-50 MG TAB PO PRN (19:06)
[2025-04-05] MEDS ORDERED: Ventilator Sedation Protocol 1 EACH FS SCH ×2 (19:11→20:00)
[2025-04-05] MEDS ORDERED: Magnesium Sulfate In Water 4 GM in Premix 1 BAG IVPB PRN (19:15)
[2025-04-05] MEDS ORDERED: PHOS-NAK 1 PKT PACK PO PRN (19:15)
[2025-04-05] MEDS ORDERED: Electrolyte Replacement Protocol 1 EACH FS SCH (19:15)
[2025-04-05] MEDS ORDERED: Propofol BOLUS 1,000 MG/100 ML VIAL IV PRN (20:00)
[2025-04-05] MEDS ORDERED: DISCONTINUE PREVIOUS NARCOTIC PAIN MEDICATIONS AND BENZODIAZEPINES FS SCH (20:00)
[2025-04-05] MEDS ORDERED: Fentanyl BOLUS 100 ML IVPB PRN (20:00)
[2025-04-05] MEDS ORDERED: Glucagon 1 MG/ML KIT IM PRN (20:45)
[2025-04-05] MEDS ORDERED: PHOS-NAK 1 PKT PACK PER TUBE PRN (20:49)
[2025-04-05] MEDS ORDERED: Senokot S 8.6-50 MG TAB PER TUBE PRN (20:49)
[2025-04-05] MEDS: Vancomycin 1.5 GM / NS 500ML VIAL-2-BAG IVPB SCH (20:55)
[2025-04-05] MEDS: levETIRAcetam 500 MG (5 mL) VIAL SLOW IVP SCH (21:09)
[2025-04-05] MEDS: Folic Acid 1 MG TAB PER TUBE SCH (21:09)
[2025-04-05] MEDS: Multivit, Therapeutic 1 TAB PER TUBE SCH (21:09)
[2025-04-05] MEDS: Famotidine/PF 20 mg/2ml Vial SLOW IVP SCH (21:09)
[2025-04-05] MEDS: Multivit, Therapeutic 1 TAB PO SCH (21:26)
[2025-04-05] MEDS: Folic Acid 1 MG TAB PO SCH (21:26)
[2025-04-06] MEDS: Norepinephrine 8 MG/0.9% NS 250 ML ONE (03:10)
[2025-04-06] MEDS: Norepinephrine 8 MG/0.9% NS 250 ML IVPB SCH (03:11)
[2025-04-06 05:23] LABS: #Basophils 0.06 10x3/uL (0.0-0.2); #Eosinophils Less than 0.03 10x3/uL (0.0-0.7); #Monocytes 1.22 10x3/uL (0.11-0.59); #Neutrophils 7.51 10x3/uL (1.40-6.50); %Basophils 0.6 % (0.0-1.0); %Eosinophils 0.2 % (0.0-10.0); %Lymphocytes 15.8 % (21.0-51.0); %Monocytes 11.6 % (0.0-10.0); %Neutrophils 71.3 % (42.0-75.0); Hematocrit 31.2 % (36.0-47.0); Hemoglobin 10.3 g/dL (12.0-16.0); Mean Corpuscular Hemoglobin 29.3 pg (27.0-31.0); Mean Corpuscular Volume 88.9 fL (78.0-98.0); Platelet Count 234 10x3/uL (130-400); Red Blood Cell (RBC) Count 3.51 mill/uL (4.20-5.40); White Blood Cell (WBC) Count 10.52 10x3/uL (4.8-10.8)
[2025-04-06 05:48] LABS: Vancomycin, Random 15.4 ug/mL (See Comment)
[2025-04-06 05:50] LABS: Bilirubin, Direct 0.4 mg/dL (0.1-0.3)
[2025-04-06 06:03] LABS: ALT (SGPT) 13 U/L (Less than 34); AST (SGOT) 26 U/L (11-34); Albumin 3.1 g/dL (3.1-4.5); Alkaline Phosphatase 41 U/L (40-110); Anion Gap 18 mmol/L (10-20); BUN (Urea Nitrogen) 10 mg/dL (9.8-20.1); Bilirubin, Total 1.1 mg/dL (0.3-1.2); Calc. Creatinine Clearance 65 mL/min (70-130); Calcium 7.8 mg/dL (7.8-10.44); Carbon Dioxide 15 mmol/L (23-31); Chloride 108 mmol/L (98-107); Globulin 2.2 g/dL (2.4-3.5); Glucose 55 mg/dL (83-110); Magnesium 1.8 mg/dL (1.6-2.6); Potassium 4.0 mmol/L (3.5-5.1); Sodium 137 mmol/L (136-145)
[2025-04-06] MEDS: Dextrose 50% Abboject 50 ML SYRINGE SLOW IVP PRN (06:05)
[2025-04-06 06:52] LABS: Base Excess (BEa) -9.9 mEq/L (-2.0 to +3.0); Calcium, Ionized (arterial) 1.15 mmol/L (1.12-1.30); Hematocrit-ABG 31 % (36.0-47.0); Hemoglobin (Hb) 10.6 g/dL (12.0-16.0); O2 Tension (PaO2), arterial 172.6 mmHg (> 70.0); Potassium - ABG Lab 3.02 mmol/L (3.70-5.30); pH, Arterial 7.396 (7.35-7.45)
[2025-04-06 06:55] LABS: Actual Bicarbonate (HCO3a) 13.3 mEq/L (22-28); CO2 Tension 22.2 mmHg (35.0-45.0); Puncture Site LR
[2025-04-06] MEDS: Sodium Bicarb 50 MEQ/50 ML Abboject 8.4% SYRINGE ONE (07:41)
[2025-04-06] MEDS ORDERED: Vancomycin 1.25 GM / NS 250 ML VIAL-2-BAG IVPB SCH (08:00)
[2025-04-06] MEDS: Enoxaparin 40 MG (0.4 mL) SYRINGE SC SCH (08:29)
[2025-04-06] MEDS: Folic Acid 1 MG TAB PER TUBE SCH (08:29)
[2025-04-06] MEDS: Vancomycin HCl 750 MG in Sodium Chloride 0.9% 250 ML 250 ML IVPB SCH (08:29)
[2025-04-06] MEDS: Aspirin 81 mg Enteric Coated Tablet PO SCH (08:29)
[2025-04-06] MEDS: Multivit, Therapeutic 1 TAB PER TUBE SCH (08:30)
[2025-04-06] MEDS ORDERED: Multivit, Therapeutic 1 TAB PO SCH (09:00)
[2025-04-06] MEDS ORDERED: Folic Acid 1 MG TAB PO SCH (09:00)
[2025-04-06] MEDS: Pantoprazole 40 MG VIAL IVP SCH ×2 (12:32→20:59)
[2025-04-06] MEDS: Mupirocin 1 GM TUBE NASAL DECOLONIZATION NASAL SCH (20:57)
[2025-04-07 05:44] LABS: #Basophils 0.06 10x3/uL (0.0-0.2); #Eosinophils 0.06 10x3/uL (0.0-0.7); #Monocytes 0.69 10x3/uL (0.11-0.59); #Neutrophils 7.56 10x3/uL (1.40-6.50); %Basophils 0.7 % (0.0-1.0); %Eosinophils 0.7 % (0.0-10.0); %Lymphocytes 7.7 % (21.0-51.0); %Monocytes 7.6 % (0.0-10.0); %Neutrophils 82.9 % (42.0-75.0); Hematocrit 30.6 % (36.0-47.0); Hemoglobin 10.0 g/dL (12.0-16.0); Mean Corpuscular Hemoglobin 29.4 pg (27.0-31.0); Mean Corpuscular Volume 90.0 fL (78.0-98.0); Platelet Count 202 10x3/uL (130-400); Red Blood Cell (RBC) Count 3.40 mill/uL (4.20-5.40); White Blood Cell (WBC) Count 9.11 10x3/uL (4.8-10.8)
[2025-04-07 05:51] LABS: Vancomycin, Random 10.8 ug/mL (See Comment)
[2025-04-07 05:54] LABS: Anion Gap 18 mmol/L (10-20); BUN (Urea Nitrogen) 6 mg/dL (9.8-20.1); Calc. Creatinine Clearance 74 mL/min (70-130); Calcium 8.0 mg/dL (7.8-10.44); Carbon Dioxide 15 mmol/L (23-31); Chloride 112 mmol/L (98-107); Glucose 115 mg/dL (83-110); Potassium 3.0 mmol/L (3.5-5.1); Sodium 142 mmol/L (136-145)
[2025-04-07] MEDS: Potassium Chloride 20 MEQ in Premix 1 BAG IVPB PRN (06:12)
[2025-04-07 06:13] VITALS: BMI 20.9
[2025-04-07] MEDS: Vancomycin 1 GM in Premix 1 BAG IVPB SCH (08:38)
[2025-04-08 04:47] LABS: #Basophils 0.04 10x3/uL (0.0-0.2); #Eosinophils 0.08 10x3/uL (0.0-0.7); #Monocytes 0.56 10x3/uL (0.11-0.59); #Neutrophils 6.12 10x3/uL (1.40-6.50); %Basophils 0.5 % (0.0-1.0); %Eosinophils 1.1 % (0.0-10.0); %Lymphocytes 10.2 % (21.0-51.0); %Monocytes 7.4 % (0.0-10.0); %Neutrophils 80.4 % (42.0-75.0); Hematocrit 29.1 % (36.0-47.0); Hemoglobin 9.8 g/dL (12.0-16.0); Mean Corpuscular Hemoglobin 29.5 pg (27.0-31.0); Mean Corpuscular Volume 87.7 fL (78.0-98.0); Platelet Count 153 10x3/uL (130-400); Red Blood Cell (RBC) Count 3.32 mill/uL (4.20-5.40); White Blood Cell (WBC) Count 7.61 10x3/uL (4.8-10.8)
[2025-04-08 05:08] LABS: Vancomycin, Random 31.8 ug/mL (See Comment)
[2025-04-08 06:39] LABS: Anion Gap 12 mmol/L (10-20); BUN (Urea Nitrogen) 9 mg/dL (9.8-20.1); Calc. Creatinine Clearance 38 mL/min (70-130); Calcium 8.2 mg/dL (7.8-10.44); Carbon Dioxide 16 mmol/L (23-31); Chloride 111 mmol/L (98-107); Glucose 186 mg/dL (83-110); Potassium 3.1 mmol/L (3.5-5.1); Sodium 136 mmol/L (136-145)
[2025-04-08] MEDS: Thiamine 100 MG TAB PER TUBE SCH (09:38)
[2025-04-08 10:02] LABS: Actual Bicarbonate (HCO3a) 15.6 mEq/L (22-28); Base Excess (BEa) -4.9 mEq/L (-2.0 to +3.0); Calcium, Ionized (arterial) 1.17 mmol/L (1.12-1.30); Hematocrit-ABG 33 % (36.0-47.0); Hemoglobin (Hb) 11.1 g/dL (12.0-16.0); O2 Tension (PaO2), arterial 179.6 mmHg (> 70.0); Potassium - ABG Lab 2.86 mmol/L (3.70-5.30); pH, Arterial 7.544 (7.35-7.45)
[2025-04-08 10:12] LABS: CO2 Tension 18.5 mmHg (35.0-45.0); Puncture Site LR
[2025-04-08 10:13] LABS: ALV-art Gradient 82.475 mmHg (0-20)
[2025-04-08] MEDS: DC Sedation Protocol FS ONE (16:11)
[2025-04-08 16:31] LABS: Potassium 3.3 mmol/L (3.5-5.1)
[2025-04-08] MEDS ORDERED: Thiamine 100 MG TAB PO SCH (19:30)
[2025-04-08] MEDS: Famotidine/PF 20 mg/2ml Vial SLOW IVP SCH (20:00)
[2025-04-09 04:01] LABS: #Basophils 0.05 10x3/uL (0.0-0.2); #Eosinophils 0.08 10x3/uL (0.0-0.7); #Monocytes 0.61 10x3/uL (0.11-0.59); #Neutrophils 5.08 10x3/uL (1.40-6.50); %Basophils 0.7 % (0.0-1.0); %Eosinophils 1.2 % (0.0-10.0); %Lymphocytes 13.0 % (21.0-51.0); %Monocytes 9.1 % (0.0-10.0); %Neutrophils 75.9 % (42.0-75.0); Hematocrit 29.0 % (36.0-47.0); Hemoglobin 9.6 g/dL (12.0-16.0); Mean Corpuscular Hemoglobin 29.2 pg (27.0-31.0); Mean Corpuscular Volume 88.1 fL (78.0-98.0); Platelet Count 202 10x3/uL (130-400); Red Blood Cell (RBC) Count 3.29 mill/uL (4.20-5.40); White Blood Cell (WBC) Count 6.70 10x3/uL (4.8-10.8)
[2025-04-09 04:24] LABS: Anion Gap 8 mmol/L (10-20); BUN (Urea Nitrogen) 6 mg/dL (9.8-20.1); Calc. Creatinine Clearance 38 mL/min (70-130); Calcium 8.7 mg/dL (7.8-10.44); Carbon Dioxide 20 mmol/L (23-31); Chloride 118 mmol/L (98-107); Glucose 156 mg/dL (83-110); Potassium 3.5 mmol/L (3.5-5.1); Sodium 142 mmol/L (136-145)
[2025-04-09 04:26] LABS: Vancomycin, Random 27.7 ug/mL (See Comment)
[2025-04-09] MEDS: Vancomycin 1 GM in Premix 1 BAG IVPB SCH (07:50)
[2025-04-09] MEDS: Famotidine/PF 20 mg/2ml Vial SLOW IVP SCH (09:41)
[2025-04-09] MEDS: Amoxicillin/Potassium Clav 500 MG TAB PO SCH ×2 (09:49→20:37)
[2025-04-09 12:25] VITALS: BMI 20.9
[2025-04-10 09:31] LABS: #Basophils 0.06 10x3/uL (0.0-0.2); #Eosinophils 0.11 10x3/uL (0.0-0.7); #Monocytes 0.55 10x3/uL (0.11-0.59); #Neutrophils 4.05 10x3/uL (1.40-6.50); %Basophils 1.1 % (0.0-1.0); %Eosinophils 2.0 % (0.0-10.0); %Lymphocytes 14.0 % (21.0-51.0); %Monocytes 9.9 % (0.0-10.0); %Neutrophils 72.8 % (42.0-75.0); Hematocrit 32.4 % (36.0-47.0); Hemoglobin 10.8 g/dL (12.0-16.0); Mean Corpuscular Hemoglobin 29.3 pg (27.0-31.0); Mean Corpuscular Volume 88.0 fL (78.0-98.0); Platelet Count 224 10x3/uL (130-400); Red Blood Cell (RBC) Count 3.68 mill/uL (4.20-5.40); White Blood Cell (WBC) Count 5.56 10x3/uL (4.8-10.8)
[2025-04-10 09:49] LABS: Anion Gap 12 mmol/L (10-20); BUN (Urea Nitrogen) 5 mg/dL (9.8-20.1); Calc. Creatinine Clearance 44 mL/min (70-130); Calcium 8.9 mg/dL (7.8-10.44); Carbon Dioxide 23 mmol/L (23-31); Chloride 113 mmol/L (98-107); Glucose 140 mg/dL (83-110); Potassium 3.1 mmol/L (3.5-5.1); Sodium 145 mmol/L (136-145)
[2025-04-10] MEDS: Potassium Bicarbonate/Cit Ac 20 MEQ TAB PER TUBE PRN (10:12)
[2025-04-10] MEDS ORDERED: levETIRAcetam 500 MG TAB PO SCH (21:00)
[2025-04-10] MEDS: Rosuvastatin 10 MG TAB PO SCH (22:30)
[2025-04-10] MEDS: levETIRAcetam 500 MG TAB PO SCH (22:31)
[2025-04-10] MEDS: Sacubitril 24MG/Valsartan 26 MG TAB PO SCH (22:31)
[2025-04-11 06:30] LABS: #Basophils 0.05 10x3/uL (0.0-0.2); #Eosinophils 0.20 10x3/uL (0.0-0.7); #Monocytes 0.62 10x3/uL (0.11-0.59); #Neutrophils 3.39 10x3/uL (1.40-6.50); %Basophils 1.0 % (0.0-1.0); %Eosinophils 3.8 % (0.0-10.0); %Lymphocytes 18.7 % (21.0-51.0); %Monocytes 11.8 % (0.0-10.0); %Neutrophils 64.5 % (42.0-75.0); Hematocrit 33.2 % (36.0-47.0); Hemoglobin 10.6 g/dL (12.0-16.0); Mean Corpuscular Hemoglobin 28.7 pg (27.0-31.0); Mean Corpuscular Volume 90.0 fL (78.0-98.0); Platelet Count 235 10x3/uL (130-400); Red Blood Cell (RBC) Count 3.69 mill/uL (4.20-5.40); White Blood Cell (WBC) Count 5.25 10x3/uL (4.8-10.8)
[2025-04-11 06:42] LABS: Anion Gap 14 mmol/L (10-20); BUN (Urea Nitrogen) 5 mg/dL (9.8-20.1); Calc. Creatinine Clearance 47 mL/min (70-130); Calcium 9.2 mg/dL (7.8-10.44); Carbon Dioxide 23 mmol/L (23-31); Chloride 110 mmol/L (98-107); Glucose 158 mg/dL (83-110); Potassium 3.2 mmol/L (3.5-5.1); Sodium 144 mmol/L (136-145)
[2025-04-11] MEDS: Dapagliflozin Propanediol 10 MG TAB PO SCH (08:40)
[2025-04-11] MEDS: Sertraline 100 MG TAB PO SCH (08:41)
[2025-04-11] MEDS: Spironolactone 25 MG TAB PO SCH (08:41)
[2025-04-11] MEDS: Multivit, Therapeutic 1 TAB PO SCH (08:41)
[2025-04-11] MEDS: Folic Acid 1 MG TAB PO SCH (08:41)
[2025-04-11] MEDS: Magnesium Oxide 400 MG TAB PO SCH (11:00)
[2025-04-11 11:27] VITALS: BP 149/78; TEMP 97.8
[2025-04-12] MEDS ORDERED: Magnesium Oxide 400 MG TAB PO SCH (09:00)
== END 2025-04-11 13:18 | disposition home or self-care (01) | DRG 208 ==
LOC: SUATTDRO 16:02 → ERS 16:02 → CCU 18:50 → T4-B 04-09 11:31
PROVIDERS: ADMIT Internal Medicine; ATTEND Internal Medicine
PROC: 5A1945Z Respiratory Ventilation, 24-96 Consecutive Hours (ICD-10-PCS; principal; 2025-04-05)
PROC: XX20X89 Monitoring of Brain Electrical Activity, Computer-aided Detection and Notification, New Technology Group 9 (ICD-10-PCS; 2025-04-06)
DX: J96.01 Acute respiratory failure with hypoxia (principal); R57.1 Hypovolemic shock; I50.22 Chronic systolic (congestive) heart failure; E87.20 Acidosis, unspecified; R57.9 Shock, unspecified; E03.9 Hypothyroidism, unspecified; E78.5 Hyperlipidemia, unspecified; I11.0 Hypertensive heart disease with heart failure; R56.9 Unspecified convulsions; E11.9 Type 2 diabetes mellitus without complications; D64.9 Anemia, unspecified; E87.6 Hypokalemia; Z79.890 Hormone replacement therapy; Z79.899 Other long term (current) drug therapy
CPT/HCPCS: 36415; 36416; 51702; 70450; 70496; 70498; 71045; 71260; 72125; 74177; 80048; 80053; 80202; 80306; 80307; 81001; 82248; 82550; 82805; 83605; 83735; 84100; 84146; 84484; 85025; 85610; 85730; 87040; 87428; 93005; 93306; 94002; 94003; 94760; 95705; 96365; 96366; 96367; 96375; 99292; J0692; J1308; J1650; J1815; J1953; J2250; J2270; J2470; J2543; J3010; J3373; J3411; J3480; J7030; J7050; J7070; J7120; J7999; Q9967